=== PATIENT | female | born 1950 | race Caucasian/White ===

== ENCOUNTER → 2016-08-18 | Day surgery (SDC) | payer MEDICARE ==
[~2016-08-18] MED LIST: LACTATED RINGER'S 1000 ML INJ 1,000 ML ONE; LEVO50TA51 PO; OMEP20TA OR; PROPOFOL 500 MG/50 ML BTL IV ONE; RESP: ALBUTEROL 2.5 MG/3 ML NEB (SCH) ONE; SPIRCAP INH; VENTAER INH
== END | disposition home or self-care (01) ==
LOC: ESDC 10:27
PROVIDERS: ATTEND Internal Medicine Gastroenterology
DX: K21.9 Gastro-esophageal reflux disease without esophagitis (principal); K29.70 Gastritis, unspecified, without bleeding; K20.9 Esophagitis, unspecified; Z86.010 Personal history of colon polyps
CPT/HCPCS: 00740; 43239; 88305; J3010; J7120; J7613